=== PATIENT | female | born 1990 | race Caucasian/White ===

== ENCOUNTER 2017-09-23 10:46 | Emergency (ER) | payer MEDICAID ==
[2017-09-23 11:08] VITALS: BP 116/73
--- NOTE | 2017-09-23 12:17 | ED Physician Documentation ---
PD HPI URI - Stated complaint Stated Complaint: SORE THROAT - Chief complaint Chief Complaint: Heent - History obtained from History obtained from: Patient - History of Present Illness Timing - onset: Other (2 WEEKS SINUS PRESSURE, DRAINAGE PRODUCTIVE COUGH. NO FVERS.) Timing details: Gradual onset Associated symptoms: Ear pain, Nasal congestion. No: Fever, Sweats Review of Systems Constitutional: denies: Fever, Chills Nose: reports: Rhinorrhea / runny nose, Congestion Throat: reports: Sore throat Respiratory: reports: Cough. denies: Dyspnea GI: denies: Abdominal Pain : denies: Now [facility] PD PAST MEDICAL HISTORY - Past Medical History Cardiovascular: None Respiratory: None Endocrine/Autoimmune: None GI: None [employer]INGS CONSERV[employer]: None : None HEENT: None Psych: None Musculoskeletal: None Derm: None Other Past Medical History: Non-hodgkins lymphoma - Past Surgical History Past Surgical History: Yes - Present Medications Home Medications: Ambulatory Orders Medication Instructions Recorded Confirmed Amoxicillin 500 mg PO TID #30 capsule 09/23/17 predniSONE [Deltasone] 60 mg PO DAILY 5 Days tablet 09/23/17 - Allergies Allergies/Adverse Reactions: Allergies Allergy/AdvReac Type Severity Reaction Status Date / Time No Known Drug Allergies Allergy Verified 09/23/17 10:55 - Social History Does the pt smoke?: No Smoking Status: Never smoker Does the pt drink ETOH?: No Does the pt have substance abuse?: No - Immunizations Immunizations are current?: Yes - POLST Patient has POLST: No PD ED PE NORMAL - Vitals Vital signs reviewed: Yes - General General: Alert and oriented X 3, No acute distress - HEENT HEENT: Other (Gums are normal, oropharynx is red but without tonsillar swelling or exudates, there is no cervical adenopathy, she is tender over both maxillary sinuses.) - Neck Neck: Supple, no meningeal sign, No bony TTP - Cardiac Cardiac: RRR, No murmur - Respiratory Respiratory: Clear bilaterally - Abdomen Abdomen: Non tender - Derm Derm: No rash - Neuro Neuro: Alert and oriented X 3 Results - Vitals Vitals: Vital Signs - 24 hr 09/23/17 10:53 Temperature 36.7 C Heart Rate 98 Respiratory 16 Rate Blood Pressure 116/73 O2 Saturation 98 Oxygen O2 Source Room air PD MEDICAL DECISION MAKING - ED course ED course: This is a 19-year-old woman with signs and symptoms of sinusitis, the time course does mandate antibiotic trial per IDSA guidelines. - Sepsis Event Vital Signs: Vital Signs - 24 hr 09/23/17 10:53 Temperature 36.7 C Heart Rate 98 Respiratory 16 Rate Blood Pressure 116/73 O2 Saturation 98 Oxygen O2 Source Room air Departure - Departure Disposition: Home, Self Care Clinical Impression: Sinusitis Qualifiers: Sinusitis location: maxillary Chronicity: acute Recurrence: non-recurrent Qualified Code(s): J01.00 - Acute maxillary sinusitis, unspecified Condition: Good Record reviewed to determine appropriate education?: Yes Instructions: ED Headache Sinus Prescriptions: Amoxicillin 500 mg PO TID #30 capsule predniSONE [Deltasone] 60 mg PO DAILY 5 Days tablet Comments: FOLLOWUP WITH YOUR PHYSICIAN IN 1 WEEK IF NOT BETTER. PUSH FLUIDS
== END 2017-09-23 12:28 | disposition home or self-care (01) ==
LOC: ED 10:46
DX: J01.00 Acute maxillary sinusitis, unspecified (principal)
CPT/HCPCS: 99282

== ENCOUNTER 2018-03-18 00:28 | Emergency (ER) | payer MEDICAID ==
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
--- NOTE | 2018-03-18 02:16 | XRAY Report ---
Reason: injury, tenderness, swelling Procedure Date: 03/18/2018 Accession Number: [id number] / [id number] Procedure: XR - Hand 3 View RT CPT Code: FULL RESULT: EXAM: RIGHT HAND RADIOGRAPHY EXAM DATE: 03/18/2018 02:01 AM. CLINICAL HISTORY: Injury, tenderness, swelling. COMPARISON: None. TECHNIQUE: 3 views. FINDINGS: Bones: Normal. No fractures or bone lesions. Joints: Normal. No subluxations. Soft Tissues: Normal. No soft tissue swelling. IMPRESSION: Normal hand radiography. [facility]
[2018-03-18] MEDS ORDERED: HYDROcod/ACET 5/325 Prepack 4 PO STA (02:30)
[2018-03-18 02:49] VITALS: BP 119/78
== END 2018-03-18 02:49 | disposition home or self-care (01) ==
LOC: ED 00:28
DX: S60.221A Contusion of right hand, initial encounter (principal); W22.8XXA Striking against or struck by other objects, initial encounter
CPT/HCPCS: 99283